=== PATIENT | male | born 1945 | race Caucasian/White ===

== ENCOUNTER 2016-07-20 11:15 | Emergency (ER) | payer OTHER, MEDICARE ==
[2016-07-20] MEDS ORDERED: ASPIRIN 81 MG TABLET, CHEWABLE PO ONE (11:37)
[2016-07-20] MEDS ORDERED: IPRATROPIUM/ALBUTEROL 0.5-2.5 MG/3 ML AMPUL NEB ONE ×2 (11:38→13:17)
--- NOTE | 2016-07-20 11:38 | ER Document Report ---
ED Medical Screen (RME) - General Chief Complaint: Cough Stated Complaint: COUGH Notes: cough started on saturday fever on/off for the past day, nonproductive cough, wheezing denies chest pain. was [facility] with [facility] flutter. PMH: CAD with previous UT x1 with stents x3 after stress tests x2, DM, JOSE denies COPD, asthma, tobacco use wheezing on exam, chest nontender. I have greeted and performed a rapid initial assessment of this patient. A comprehensive ED assessment and evaluation of the patient, analysis of test results and completion of the medical decision making process will be conducted by additional ED providers.
[2016-07-20 12:14] LABS: ABSOLUTE BASOPHILS # (AUTO) 0.1 10^3/uL (0.0-0.2); ABSOLUTE EOSINOPHILS # (AUTO) 0.3 10^3/uL (0.0-0.6); ABSOLUTE LYMPHOCYTES (AUTO) 1.4 10^3/uL (0.5-4.7); ABSOLUTE MONOCYTES (AUTO) 1.2 10^3/uL (0.1-1.4); ABSOLUTE NEUT (AUTO) 10.2 10^3/uL (1.7-8.2); BASOPHILS % (AUTO) 0.5 % (0-2); EOSINOPHILS % (AUTO) 2.4 % (0-6); HEMATOCRIT 42.8 % (37.9-51.0); HEMOGLOBIN 14.8 g/dL (13.5-17.0); HGB HCT DIFFERENCE 1.6; LYMPHOCYTES % (AUTO) 10.9 % (13-45); MEAN CORPUSCULAR HEMOGLOBIN 28.6 pg (27.0-33.4); MEAN CORPUSCULAR HGB CONC 34.7 g/dL (32.0-36.0); MEAN CORPUSCULAR VOLUME 83 fl (80-97); MONOCYTES % (AUTO) 8.9 % (3-13); RED BLOOD COUNT 5.19 10^6/uL (4.35-5.55); RED CELL DISTRIBUTION WIDTH 13.6 % (11.5-14.0); SEGMENTED NEUTROPHILS % (AUTO) 77.3 % (42-78); WHITE BLOOD COUNT 13.1 10^3/uL (4.0-10.5)
[2016-07-20 12:34] LABS: ALANINE AMINOTRANSFERASE 28 U/L (21-72); ALBUMIN 4.2 g/dL (3.5-5.0); ALKALINE PHOSPHATASE 61 U/L (38-126); ANION GAP 13 (5-19); ASPARTATE AMINO TRANSFERASE 24 U/L (17-59); BLOOD UREA NITROGEN 20 mg/dL (7-20); CALCIUM 9.5 mg/dL (8.4-10.2); CARBON DIOXIDE 27 mmol/L (22-30); CHLORIDE 102 mmol/L (98-107); CREATINE KINASE 286 U/L (55-170); CREATININE RESULT 1.12 mg/dL (0.52-1.25); GLUCOSE 129 mg/dL (75-110); POTASSIUM 4.7 mmol/L (3.6-5.0); SODIUM 141.6 mmol/L (137-145); TOTAL PROTEIN 7.1 g/dL (6.3-8.2)
[2016-07-20 12:46] LABS: CREATINE KINASE MB 1.82 ng/mL (<4.55)
[2016-07-20 12:48] LABS: TROPONIN I < 0.012 ng/mL
--- NOTE | 2016-07-20 13:09 | EKG REPORT ---
SEVERITY:- BORDERLINE ECG - SINUS RHYTHM BORDERLINE T ABNORMALITIES, INFERIOR LEADS : Confirmed by: Eder Garcia MD 20-Jul-2016 13:09:20
--- NOTE | 2016-07-20 14:26 | ER Document Report ---
ED General - General Chief Complaint: Cough Stated Complaint: COUGH Time seen by provider: 13:00 Mode of Arrival: Medic Information source: Patient Notes: 71-year-old male with a one-week history of cough of yellow sputum. Patient reports he had a 30 minute episode of paroxysmal coughing this morning and after that has sensation of irregular heartbeat. He went to his regular physician at the [facility] and was found to be in atrial flutter and EMS was called transport patient here. The time patient was placed on radiation monitor by EMS personnel the patient was back in sinus rhythm but he arrives with an EKG from the [facility] showing atrial flutter ventricular rate of 124. The patient says he had no chest pain with this. He reports he's received a breathing treatment since arrival here in says his breathing feel much better and has no sensation of rapid irregular heartbeat now. He reports no prior history of irregular heartbeat like this that he does report 3 cardiac stents. He reports his regular food adviser is Dr. Bishop Thierno Hi. He reports no cardiac workup in the past 2 years. He denies fever, chills, nausea, vomiting, abdominal pain , back pain, swelling to extremities, dizziness, or syncope. He reports sharp anterior chest pain with coughing but not otherwise. Physical Exam: General: Alert, appears well. HEENT: Normocephalic. Atraumatic. PERRLA. Extraocular movements intact. Oropharynx clear. Neck: Supple. Non-tender. Respiratory: No respiratory distress. Scattered rhonchi bilaterally good aeration no accessory muscle use Cardiovascular: Regular rate and rhythm. No murmur Abdominal: Normal Inspection. Soft, non-tender. No distension. Normal Bowel Sounds. Back: Non-tender. No deformity or step off. Extremities: Moves all four extremities. Upper extremities: Normal inspection. Non-tender. Normal color. Normal ROM. Normal temperature. Lower extremities: Normal inspection. Non-tender. No edema. Normal color. Normal ROM. Normal temperature. 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 Normal Mood. Skin: Warm. Dry. Normal color. TRAVEL OUTSIDE OF THE [place] IN LAST 30 DAYS: No - Related Data Allergies/Adverse Reactions: iodine Allergy (Verified 07/20/16 12:11) Iodine and Iodide Containing Produc Allergy (Verified 07/20/16 12:11) ranolazine Allergy (Verified 07/20/16 12:12) rosiglitazone [From Avandia] Allergy (Verified 07/20/16 12:12) simvastatin Allergy (Verified 07/20/16 12:12) Past Medical History - Social History Smoking Status: Never Smoker Family History: Malignancy Patient has suicidal ideation: No Patient has homicidal ideation: No - Past Medical History Cardiac Medical History: Reports: Hx Coronary Artery Disease, Hx Hypertension Endocrine Medical History: Reports: Hx Diabetes Mellitus Type 2 Renal/ Medical History: Denies: Hx Peritoneal Dialysis Past Surgical History: Comment Only: Hx Vascular Surgery - Stents x 3 Review of Systems - Review of Systems Constitutional: See HPI EENT: denies: Ear pain, Throat pain Cardiovascular: See HPI Respiratory: See HPI Gastrointestinal: See HPI Genitourinary: denies: Burning, Dysuria Musculoskeletal: denies: Back pain Skin: denies: Rash Hematologic/Lymphatic: denies: Swollen glands Neurological/Psychological: denies: Weakness, Numbness Physical Exam - Vital signs Vitals: Pulse Ox 100 07/20/16 11:50 Course - Re-evaluation Re-evalutation: 07/20/16 14:23 Believe the patient's cough related to bronchitis. Fluids prevalent here but given the duration of symptoms and lack of fever to believe pursuing the workup is warranted. He will be prescribed Zithromax to treat bronchitis. Atrial flutter appears to been provoked by his paroxysmal coughing and resolved on its own. Patient is already on some medicines as an outpatient would have mitigated worst affects of this I believe he is safe for discharge with outpatient follow with his food adviser next week and he says he does have plans for that. - Vital Signs Vital signs: Temp Pulse Resp BP Pulse Ox 98.8 F 96 24 H 127/79 H 95 07/20/16 12:00 07/20/16 12:00 07/20/16 13:31 07/20/16 13:31 07/20/16 13:31 - Laboratory Result Diagrams: 07/20/16 11:55 07/20/16 11:55 Laboratory results interpreted by me: 07/20/16 07/20/16 11:55 11:55 WBC 13.1 H Lymphocytes % 10.9 L Absolute Neutrophils 10.2 H Glucose 129 H Creatine Kinase 286 H - Diagnostic Test Radiology reviewed: Image reviewed, Reports reviewed - EKG Interpretation by Me Additional EKG results interpreted by me: 07/20/16 14:23 EKG reviewed by myself shows sinus rhythm at 79 no acute changes. Patient remains in sinus rhythm with occasional PVCs on radiation monitor Discharge - Discharge Clinical Impression: Bronchitis Atrial flutter Qualifiers: Atrial flutter type: unspecified Qualified Code(s): I48.92 - Unspecified atrial flutter Condition: Stable Disposition: HOME, SELF-CARE Additional Instructions: Atrial Fibrillation or atrial flutter Atrial fibrillation is an abnormal heart rhythm, caused by irregular electrical circuits in the upper heart chamber. It can be caused by heart valve disease, hardening of the arteries, or metabolic problems such as thyroid disease, or may occur without a clear cause. Atrial fibrillation may occur only occasionally, or may be chronic. Atrial fibrillation often results in a very fast heart rate, with palpitations, lightheadedness, and shortness of breath. Treatment is to slow the abnormally fast rate, and to convert the rhythm back to normal, if possible. Many patients stay in atrial fibrillation for years without symptoms or complications. Your doctor will decide whether you can be converted back to a normal heart rhythm. Contact the doctor or emergency medical system at once if you develop chest pain, shortness of breath, or severe lightheadedness, or if you develop any disturbance of consciousness, problems with speech, or localized weakness. Bronchitis You have acute bronchitis. This disease is an infection or inflammation of the air passageways in your lungs. Symptoms usually include cough, low grade fever, shortness of breath, and wheezing. The cough usually persists for a couple of weeks. Most cases of bronchitis get better without antibiotics. We prescribe antibiotics when we believe bacteria are damaging your airways, or if there's high risk the bronchitis will worsen into pneumonia. Increase your fluid intake. A cool mist humidifier may make your lungs more comfortable. An expectorant (cough medicine that loosens phlegm) can help. If you smoke, STOP!!! Recovery from bronchitis can be somewhat slow, but you should see improvement within a day or two. Repeated episodes of bronchitis may result in lung damage -- for example, chronic bronchitis, recurrent pneumonias, or emphysema. Call the doctor if you develop increasing fever, shortness of breath, chest pain, bloody sputum, or otherwise worsen. If you have not improved at all after several days, contact the physician. See your food adviser Dr. Moreau next week for follow-up of your atrial flutter episode Prescriptions: Benzonatate [Tessalon Perles 100 mg Capsule] 100 mg PO Q8HP PRN #30 capsule PRN Reason: Cough Azithromycin [Zithromax 250 mg Tablet] 250 mg PO ASDIR PRN #6 tablet PRN Reason: Referrals: [facility] [Provider Group] - Follow up as needed
[2016-07-20 14:46] VITALS: BP 133/78
== END 2016-07-20 14:45 | disposition home or self-care (01) ==
LOC: ER 11:15
DX: J40 Bronchitis, not specified as acute or chronic (principal); I48.92 Unspecified atrial flutter; I49.3 Ventricular premature depolarization; R05 Cough; R07.89 Other chest pain; I25.10 Atherosclerotic heart disease of native coronary artery without angina pectoris; I10 Essential (primary) hypertension; E11.9 Type 2 diabetes mellitus without complications; Z98.61 Coronary angioplasty status; Z88.3 Allergy status to other anti-infective agents; Z88.8 Allergy status to other drugs, medicaments and biological substances
CPT/HCPCS: 93005; 94640 ×2; 99284; 36415; 82553; 82550; 83735; 85025; 80053; 84484; 71010; 93010; J7620